=== PATIENT | female | born 1980 | race Hispanic/Latino ===

== ENCOUNTER 2018-10-12 15:57 | Outpatient (CLI) | payer BC ==
--- NOTE | 2018-10-12 16:44 | RAD ---
EXAM: CERVICAL SPINE SEVEN VIEWS INCLUDING OBLIQUE VIEWS AND FLEXION AND EXTENSION VIEWS: 10/12/18 HISTORY: Rheumatoid arthritis. FINDINGS: C7 and T1 are mostly obscured on the lateral view. The tip of odontoid and C1 are obscured on the AP open mouth view. No evidence for abnormal translation between flexion and extension. Minimal narrowi ng of the left C5-C6 foramen. IMPRESSION: Minimal narrowing of the left C5-C6 foramen. No abnormal translation between flexion and extension. POS: [facility]
== END 2018-10-12 15:58 | disposition home or self-care (01) ==
LOC: BICRAD 15:57
PROVIDERS: ATTEND Internal Medicine Rheumatology
DX: M05.79 Rheumatoid arthritis with rheumatoid factor of multiple sites without organ or systems involvement (principal); M48.02 Spinal stenosis, cervical region
CPT/HCPCS: 72052

== ENCOUNTER 2020-05-23 13:46 | Day surgery (SDC) | payer BC ==
[~2020-05-23 13:46] MED LIST: Acetaminophen 500 MG TAB PO PRN; INFLIXIMAB ABDA IVPB SCH; SODIUM CHLORIDE 0.9% IVPB SCH; diphenhydrAMINE 25 MG CAP PO PRN; diphenhydrAMINE 50 MG/ML VIAL IVP PRN
[2020-05-23] MEDS ORDERED: Sodium Chloride 0.9% 20 ML ONE (13:55)
[2020-05-23 14:09] VITALS: BP 123/64; TEMP 98.1
== END 2020-05-23 16:55 | disposition home or self-care (01) ==
LOC: ONC/OP 13:46
PROVIDERS: ATTEND Internal Medicine Rheumatology
DX: M05.79 Rheumatoid arthritis with rheumatoid factor of multiple sites without organ or systems involvement (principal)
CPT/HCPCS: 96413; 96415; J2274; J7050; Q0163

== ENCOUNTER 2020-07-18 13:37 | Day surgery (SDC) | payer BC ==
[2020-07-18] MEDS ORDERED: Acetaminophen 500 MG TAB PO PRN ×2 (14:03→14:04)
[2020-07-18] MEDS ORDERED: diphenhydrAMINE 25 MG CAP PO PRN (14:03)
[2020-07-18] MEDS ORDERED: diphenhydrAMINE 50 MG/ML VIAL IVP PRN ×2 (14:04)
[2020-07-18] MEDS ORDERED: SODIUM CHLORIDE 0.9% IVPB SCH (14:15)
[2020-07-18] MEDS ORDERED: INFLIXIMAB ABDA IVPB SCH (14:15)
== END 2020-07-18 16:19 | disposition home or self-care (01) ==
LOC: ONC/OP 13:37
PROVIDERS: ATTEND Internal Medicine Rheumatology
DX: M05.79 Rheumatoid arthritis with rheumatoid factor of multiple sites without organ or systems involvement (principal)
CPT/HCPCS: 96413; 96415; J2274; J7050

== ENCOUNTER 2020-09-12 13:41 | Day surgery (SDC) | payer BC ==
[~2020-09-12 13:41] MED LIST changes: +Acetaminophen 500 MG TAB PO SCH; -INFLIXIMAB ABDA IVPB SCH; -SODIUM CHLORIDE 0.9% IVPB SCH; -diphenhydrAMINE 25 MG CAP PO PRN; +diphenhydrAMINE 25 MG CAP PO SCH; +diphenhydrAMINE 50 MG/ML VIAL IVP SCH
[2020-09-12] MEDS ORDERED: Sodium Chloride 0.9% 20 ML ONE (13:46)
[2020-09-12 14:00] VITALS: BP 125/74; TEMP 98.4
[2020-09-12] MEDS ORDERED: Acetaminophen 500 MG TAB PO PRN (14:03)
[2020-09-12] MEDS ORDERED: diphenhydrAMINE 50 MG/ML VIAL IVP PRN ×2 (14:15)
[2020-09-12] MEDS ORDERED: Acetaminophen 500 MG TAB PO SCH (14:15)
[2020-09-12] MEDS ORDERED: INFLIXIMAB ABDA IVPB SCH (14:15)
[2020-09-12] MEDS ORDERED: SODIUM CHLORIDE 0.9% IVPB SCH (14:15)
== END 2020-09-12 16:26 | disposition home or self-care (01) ==
LOC: ONC/OP 13:41
PROVIDERS: ATTEND Internal Medicine Rheumatology
DX: M05.79 Rheumatoid arthritis with rheumatoid factor of multiple sites without organ or systems involvement (principal)
CPT/HCPCS: 96413; 96415; J2274; J7050

== ENCOUNTER 2020-11-07 13:52 | Day surgery (SDC) | payer BC ==
[2020-11-07 16:15] VITALS: BP 122/81; TEMP 97.8
== END 2020-11-07 16:26 | disposition home or self-care (01) ==
LOC: ONC/OP 13:52
PROVIDERS: ATTEND Internal Medicine Rheumatology
DX: M05.79 Rheumatoid arthritis with rheumatoid factor of multiple sites without organ or systems involvement (principal)
CPT/HCPCS: 96413; 96415; J7050; Q0163; Q5104

== ENCOUNTER 2023-05-19 07:48 | Outpatient (CLI) | payer OTHER | END 2023-05-19 07:49 | disposition home or self-care (01) | LOC: BICMAMMO 07:48 | PROVIDERS: ATTEND Student in an Organized Health Care Education/Training Program | DX: N63.21 Unspecified lump in the left breast, upper outer quadrant (principal) | CPT/HCPCS: 77066; G0279 ==